=== PATIENT | female | born 1975 | race Caucasian/White ===

== ENCOUNTER 2017-10-13 11:10 | Emergency (ER) | payer SELFPAY ==
[~2017-10-13] VITALS: Ht 165.1 cm; Wt 59.0 kg
[2017-10-13] VITALS (8 sets, daily range): BP systolic 94–125; BP diastolic 53–83
--- NOTE | 2017-10-13 12:47 | Emergency Room Report ---
History of Present Illness General Chief Complaint: Alcohol Intoxication Source: Patient Present Illness HPI 42-year-old female with unknown pmhx p/w alcohol intoxication. ems found her sleeping on porch of someone elses house Patient admits to drinking alcohol, states it is "a lot" Currently denying any complaints. Denies history of trauma States that she does not have any family here, they are all in the [facility], states that she was supposed to be going to a rehabilitation facility but didnt make it Allergies: Coded Allergies: No Known Allergies (Unverified , 10/13/17) Patient History Past Medical History: see triage record Past Surgical History: none Pertinent Family History: none Now: No Reviewed Nursing Documentation: PMH: Agreed, PSxH: Agreed Nursing Documentation-PMH Past Medical History: No Stated History Review of Systems All Other Systems: negative except mentioned in HPI Physical Exam Vital Signs Date Time Temp Pulse Resp B/P (MAP) Pulse Ox O2 Delivery O2 Flow Rate FiO2 10/13/17 11:09 98.4 100 18 125/83 98 Room Air 98.4 Sp02 EP Interpretation: reviewed, normal General Appearance: other - intoxicated but . cooperative, anxious Head: normocephalic, atraumatic Eyes: bilateral eye normal inspection, bilateral eye PERRL, bilateral eye EOMI ENT: normal ENT inspection, normal pharynx, normal voice, moist mucus membranes Neck: normal inspection, full range of motion, supple Respiratory: normal inspection, lungs clear, normal breath sounds, no respiratory distress, no retraction, no wheezing, speaking full sentences, chest symmetrical Cardiovascular #1: normal inspection, regular rate, rhythm, no edema, normal capillary refill Cardiovascular #2: 2+ radial (R), 2+ radial (L) Gastrointestinal: normal inspection, non tender, soft, non-distended, no guarding Musculoskeletal: normal inspection, back normal, normal range of motion, non- tender Neurologic: normal inspection, alert, oriented x3, responsive, motor strength/ tone normal, sensory intact, normal gait, speech normal Psychiatric: no suicidal/homicidal ideation, no delusions, anxious, other - intoxicated Skin: normal inspection, normal color, no rash, warm/dry, well hydrated, normal turgor Medical Decision Making Diagnostic Impression: Primary Impression: Acute alcoholic intoxication ER Course 42-year-old female with alcohol intoxication DDX: Likely alcohol intoxication No signs of trauma Plan: pending sobriety ER course: Patient became extremely agitated when patient was told she will be discharged states she wants to go to [place] and be transferred no active si/hi agitated/yelling at staff sedated with haldol/ativan Signed out patient to Dr Shepherd -pending sobriety Please note that this Emergency Department Report was dictated using Oodletissue technologist technology software, occasionally this can lead to erroneous entry secondary to interpretation by the dictation equipment Last Vital Signs Date Time Temp Pulse Resp B/P (MAP) Pulse Ox O2 Delivery O2 Flow Rate FiO2 10/13/17 11:10 98.4 100 18 125/83 98 Room Air 98.4 Patient Instructions: Alcohol Intoxication, [id number] Miesha Arechiga M.D. Oct 13, 2017 12:47
[2017-10-13] MEDS ORDERED: Haloperidol 5mg/ml Inj IM ONE (14:00)
[2017-10-13] MEDS ORDERED: LORazepam Inj 2mg/ml 1ml IM ONE (14:00)
[2017-10-13] MEDS ORDERED: Haloperidol 5mg/ml Inj ONE (14:01)
== END 2017-10-13 19:13 | disposition home or self-care (01) ==
LOC: EDBD 11:10 → EMR 11:49
DX: F10.129 Alcohol abuse with intoxication, unspecified (principal)
CPT/HCPCS: 96372; 99283; J1630

== ENCOUNTER 2017-10-13 19:54 | Emergency (ER) | payer OTHER ==
[~2017-10-13] VITALS: Ht 162.6 cm; Wt 68.0 kg
[2017-10-13 20:27] VITALS: BP 110/76
[2017-10-13 20:28] VITALS: BP 113/70
--- NOTE | 2017-10-13 20:46 | Emergency Room Report ---
History of Present Illness General Chief Complaint: General Complaint Source: Patient Present Illness HPI 42-year-old female walked back into the ER because she did not know how to get to the [facility] for ETOH detox. Patient was in the ER today most of the day, after evaluation by previous ER M.D. for alcohol intoxication then required sedation for severe agitation, intoxication. Patient states she is homeless, does not have medication for bus. Allergies: Coded Allergies: ASPIRIN (Verified Allergy, Unknown, 10/13/17) Patient History Past Medical History: none Past Surgical History: none Pertinent Family History: none Social History: Reports: alcohol use Last Menstrual Period: "a week ago" Now: No Reviewed Nursing Documentation: PMH: Agreed, PSxH: Agreed Review of Systems All Other Systems: negative except mentioned in HPI Physical Exam Vital Signs Date Time Temp Pulse Resp B/P (MAP) Pulse Ox O2 Delivery O2 Flow Rate FiO2 10/13/17 19:58 98.5 144 18 113/70 98 Room Air 98.4 Sp02 EP Interpretation: reviewed, normal General Appearance: normal inspection, well appearing, no apparent distress, alert, GCS 15, non-toxic Head: normocephalic, atraumatic Eyes: bilateral eye PERRL, bilateral eye EOMI ENT: normal ENT inspection, hearing grossly normal, normal pharynx, no angioedema, normal voice, TMs + canals normal, uvula midline, moist mucus membranes Neck: normal inspection, full range of motion, supple, thyroid normal, no meningismus, no bony tend Respiratory: normal inspection, lungs clear, normal breath sounds, no rhonchi, no respiratory distress, no retraction, no accessory muscle use, no wheezing, speaking full sentences Cardiovascular #1: regular rate, rhythm, no edema, no JVD, normal capillary refill Gastrointestinal: normal inspection, normal bowel sounds, non tender, soft, no mass, no peritonitis, non-distended, no guarding, no hernia, no pulsatile mass Genitourinary: no CVA tenderness Musculoskeletal: normal inspection, back normal, normal range of motion, no calf tenderness, pelvis stable, Elder's Sign negative Neurologic: normal inspection, alert, oriented x3, responsive, health occupations instructor III-XII nml as tested, motor strength/tone normal, cerebellar normal, normal gait, speech normal Psychiatric: normal inspection, judgement/insight normal, mood/affect normal, no suicidal/homicidal ideation, no delusions Skin: normal inspection, normal color, no rash Lymphatic: normal inspection, no adenopathy Medical Decision Making Diagnostic Impression: Primary Impression: Encounter for generalized patient complaints ER Course Vital signs stable, afebrile Atraumatic Denies SI, HI, AVH Not currently intoxicated Unlikely withdrawal as was intoxicated in ED this morning - also recently received dose of ativan Patient possibly malingering d/t homelessless Reiterated we do not have SW here or at night or detox social human services assistants printed [email or web address] bus and walking directions for patient She was given bus token as well DC OF NOTE, earlier this morning, EMS was supposed to bring patient directly to [facility] for detox services and instead chose to bring patient to [place] despite the fact that patient had already coordinated detox services at [facility]. ER course: Patient has remained stable during ED stay. Disposition: Patient is to be discharged to home. Patient is instructed to go to [facility] for the ETOH detox services she was initially seeking earlier today Strict return precautions discussed with patient such as fever, chills, worsening/severe pain, nausea, vomiting, which may indicate severe illness. Patient verbalizes understanding and agrees with plan. Please note that this Emergency Department Report was dictated using Bizporamanager implementation technology software, occasionally this can lead to erroneous entry secondary to interpretation by the dictation equipment Last Vital Signs Date Time Temp Pulse Resp B/P (MAP) Pulse Ox O2 Delivery O2 Flow Rate FiO2 10/13/17 20:28 98.5 18 113/70 98 Room Air 98.4 10/13/17 20:27 121 Status: improved Disposition: HOME, SELF-CARE Condition: Improved Referrals: [facility],REFERRING (PCP) Patient Instructions: Medical Screening Exam PAL FUNEZ M.D. Oct 13, 2017 20:46
== END 2017-10-13 20:28 | disposition home or self-care (01) ==
LOC: EMR 20:15
DX: F10.129 Alcohol abuse with intoxication, unspecified (principal); R45.1 Restlessness and agitation
CPT/HCPCS: 99283